=== PATIENT | female | born 1975 | race Caucasian/White ===

== ENCOUNTER 2022-04-29 16:07 | Emergency (ER) | payer BC ==
[2022-04-29 16:58] VITALS: BP 146/73
[2022-04-29 18:52] LABS: CARBON DIOXIDE,CO2 25.9 mmol/L (21.0-32.0); POTASSIUM,K 3.4 mmol/L (3.5-5.1)
[2022-04-29 19:04] LABS: CORONAVIRUS COVID-19 NAA NEGATIVE (NEGATIVE); INFLUENZA A NAA NEGATIVE (NEGATIVE); INFLUENZA B NAA NEGATIVE (NEGATIVE)
[2022-04-29 21:53] VITALS: PULSE 68
== END 2022-04-29 20:09 | disposition home or self-care (01) ==
LOC: MW.ED 16:07
DX: R55 Syncope and collapse (principal); R25.1 Tremor, unspecified; Z20.822 Contact with and (suspected) exposure to COVID-19
CPT/HCPCS: 0240U; 36415; 71045; 80053; 81025; 82947; 83735; 84443; 84484; 85025; 99284; 93010